=== PATIENT | female | born 1940 | race Caucasian/White ===

== ENCOUNTER 2016-10-18 14:07 | Emergency (ER) | payer MEDICARE, OTHER ==
[~2016-10-18 14:07] MED LIST: ASPI81 PO; CLOP75 PO; FISH1000 PO; LIPI20TA PO; NEXI40CA PO; TOPR50TA PO; VITA-13 PO; VITA500T83 PO
[2016-10-18] MEDS ORDERED: SUCCINYLCHOLINE CHLORIDE 200 MG/10 ML VIAL ONE (14:09)
[2016-10-18] MEDS ORDERED: ETOMIDATE 40 MG/20 ML VIAL ONE (14:09)
--- NOTE | 2016-10-18 15:03 | PD ---
HPI Chief Complaint: Code Blue Time Seen by Provider: 14:50 Travel History International Travel<30 days: No Contact w/Intl Traveler<30days: No Traveled to known affect area: No History of Present Illness HPI 76-year-old female was brought in by private vehicle unresponsive. Patient [place] the beach today. Patient states that the family members that she is not feeling well. Patient was leaving the beach and patient was asking for aspirin. Patient started having problem with breathing and was vomiting. Patient became unresponsive subsequently. Patient was brought to the ED front door unresponsive. Patient was brought back to the room immediately and ACLS protocol started immediately. Patient has history of lung cancer. Patient was seen by public policy coordinator recently. Unknown history of CAD. PFSH Past Medical History Arthritis: Yes Autoimmune Disease: No Blood Disorders: No Anxiety: No Depression: No Heart Rhythm Problems: Yes ("BEATS TOO FAST") Cancer: Yes (hx of lung cancer both lungs) Cardiovascular Problems: No Chemotherapy: Yes COPD: Yes Diabetes: No Endocrine: No Gastrointestinal Disorders: Yes (GERD) GERD: Yes Genitourinary: No Hepatitis: No Hiatal Hernia: No Hypertension: Yes Immune Disorder: No Implanted Vascular Access Dvce: Yes (REMOVED) Musculoskeletal: No Neurologic: No Psychiatric: No Reproductive: No Respiratory: Yes (copd ) Thyroid Disease: No Past Surgical History Abdominal Surgery: Yes (lap brian) AICD: No Cardiac Surgery: No Cholecystectomy: Yes Ear Surgery: No Endocrine Surgery: No Eye Surgery: Yes (sherman cataract surgery) Genitourinary Surgery: No Gynecologic Surgery: Yes (hysterectomy) Hysterectomy: Yes Joint Replacement: No Oral Surgery: No Pacemaker: No Thoracic Surgery: Yes (right lower lobectomy left lung partial wedge) Other Surgery: Yes Social History Alcohol Use: No Tobacco Use: No (STOPPED 10/09) Substance Use: No Allergies-Medications (Allergen,Severity, Reaction): Coded Allergies: No Known Allergies (Verified , 11/04/14) Reported Meds & Prescriptions Reported Meds & Active Scripts Active Reported Vitamin C (Ascorbic Acid) 500 Mg Tab 500 Mg PO DAILY Lipitor 20 Mg Tab (Atorvastatin Calcium) 20 Mg Tab 20 Mg PO DAILY Vitamin D3 1000 Unit Tab (Cholecalciferol) 1,000 Unit Tab 2,000 Unit PO DAILY Plavix (Clopidogrel Bisulfate) 75 Mg Tab 75 Mg PO DAILY last dose was taken on tuesday the Toprol Xl (Metoprolol Succinate) 50 Mg Tabcr 50 Mg PO BID Nexium (Esomeprazole Magnesium) 40 Mg Cap 40 Mg PO DAILY Fish Oil 1,000 Mg Cap 1,000 Mg PO DAILY Aspirin 81 Mg Tab 81 Mg PO DAILY last dose was taken on tuesday the Review of Systems ROS Limitations: Unresponsive Physical Exam Narrative GENERAL: Well-nourished, well-developed patient. SKIN: Focused skin assessment warm/dry. HEAD: Normocephalic. EYES: No scleral icterus. No injection or drainage. NECK: Supple, trachea midline. No JVD or lymphadenopathy. CARDIOVASCULAR: No cardiac activity RESPIRATORY: Patient has agonal breathing occasionally. Lungs with mild diffuse rhonchi. GASTROINTESTINAL: Abdomen soft, nondistended. MUSCULOSKELETAL: No cyanosis, or edema. BACK: No obvious deformity. Data Data Orders Succinylcholine Inj (Quelicin Inj) (10/18/16 14:09) Etomidate Inj (Amidate Inj) (10/18/16 14:09) MDM Medical Decision Making Medical Screen Exam Complete: Yes Emergency Medical Condition: Yes Differential Diagnosis Differential diagnosis including cardiac arrhythmia, V. fib, DE, PE. Narrative Course 76-year-old female arrived to ED unresponsive. Patient in V. fib rhythm. ACLS protocol started. IV access established on both arms. Epinephrine, amiodarone , bicarbonate IV given. Patient was intubated. Patient was defibrillated between bouts of medications. Patient did not respond to be ACLS efforts. Patient was pronounced. Critical Care Narrative Aggregate critical care time was 45 minutes. Time to perform other separately billable procedures was not included in the critical care time. My time did not include minutes spent treating any other patients simultaneously or on activities that did not directly contribute to the patient's treatment. The services I provided to this patient were to treat and/or prevent clinically significant deterioration that could result in: I provided critical care services requiring my management, as noted below: Chart data review, documentation time, medication orders and management, vital sign assessments/reviewing monitor data, ordering and reviewing lab tests, ordering and interpreting/reviewing x-rays and diagnostic studies, care of the patient and discussion of the patient with the admitting physicians. Procedures Procedure Narrative After the risks and benefits were discussed the following procedure was performed: INTUBATION: The patient was put in optimal position for the procedure. The patient was intubated with a 7.5 cuffed endotracheal tube. Tube placement was confirmed by visualization of the tube and balloon passing through the cords, capnometry and subsequent chest x-ray. Breath sounds were equal and well aerated bilaterally postintubation. No breath sounds over stomach. Patient tolerated procedure well. Diagnosis Primary Impression: Cardiopulmonary arrest Additional Impression: Ventricular fibrillation Disposition: 20 Condition: Levi Low MD Oct 18, 2016 15:03
== END 2016-10-19 00:28 | disposition expired ==
LOC: NEPE 14:07
DX: I46.9 Cardiac arrest, cause unspecified (principal); I49.01 Ventricular fibrillation; I10 Essential (primary) hypertension; Z85.118 Personal history of other malignant neoplasm of bronchus and lung; Z87.39 Personal history of other diseases of the musculoskeletal system and connective tissue; Z86.79 Personal history of other diseases of the circulatory system; Z87.09 Personal history of other diseases of the respiratory system; Z87.19 Personal history of other diseases of the digestive system
CPT/HCPCS: 31500; 92950; J0330